=== PATIENT | female | born 1960 | race Caucasian/White ===

== ENCOUNTER 2022-05-25 09:29 | Emergency (ER) | payer OTHER ==
[~2022-05-25] VITALS: Ht 157.5 cm; Wt 90.7 kg
[2022-05-25 09:30] VITALS: BP_SYST 130
--- NOTE | 2022-05-25 09:30 | NUR ---
RECEIVED PT FROM ROBERTA MCNEILL. PT DANICAA BLS FOR N/V/D X2 DAYS. PT HAS RIGHT LOWER ABDOMINAL PAIN 5/10. PT IS AAOX4, ON N/C AT 2LPM, PT USES HOME O2. NO COUGH OR SOB NOTED. NORMAL S1S2. ABDOMEN ROUND, TENDER, BOWEL SOUNDS ACTIVE X4 QUADS. DISTAL PULSES NORMAL, SKIN WARM, NO PERIPHERAL EDEMA. SIDERAILS UP X2.
--- NOTE | 2022-05-25 09:30 | NUR ---
BROUGHT IN BY [facility] AND PLACED IN BED #3, TRIAGED. REPORT GIVEN TO JANELLE
--- NOTE | 2022-05-25 09:35 | NUR ---
DR. DAVE AT BEDSIDE TO ASSESS PT.
--- NOTE | 2022-05-25 09:45 | NUR ---
# 20 gauge angiocath placed to LAC. Use of asceptic technique. Opsite placed over site. Blood return noted. Blood for lab drawn from site. Flushed with 10 cc of normal saline. No evidence of infiltration noted. Patient tolerated well.
[2022-05-25] MEDS ORDERED: NACL 0.9% 1,000 ML IV ONE (10:00)
[2022-05-25] MEDS ORDERED: KETOROLAC TROMETHAMINE 30 MG VIAL IVP ONE (10:00)
--- NOTE | 2022-05-25 10:01 | NUR ---
TORADOL 30MG IVP GIVEN, NS 1000ML IV BOLUS INITIATED.
--- NOTE | 2022-05-25 10:08 | NUR ---
PT TAKEN TO CT SCAN AT THIS TIME.
--- NOTE | 2022-05-25 10:13 | NUR ---
PT BACK FROM CT SCAN AND PLACED BACK ON MONITOR.
[2022-05-25 10:15] LABS: BASOPHILS % (AUTO) 0.5 % (0.0-2.0); EOSINOPHILS # (AUTO) 0.1 K/uL (0.0-0.4); EOSINOPHILS % (AUTO) 1.4 % (0.0-4.0); HEMATOCRIT 39.2 % (36-48); HEMOGLOBIN 12.6 g/dL (12.0-16.0); LYMPHOCYTES # (AUTO) 1.9 K/uL (1.0-5.5); LYMPHOCYTES % (AUTO) 18.6 % (20.5-51.5); MEAN CORPUSCULAR HEMOGLOBIN 28 pg (27-31); MEAN CORPUSCULAR HGB CONC 32 % (32-36); MEAN CORPUSCULAR VOLUME 87 fL (79.0-98.0); MONOCYTES # (AUTO) 0.7 K/uL (0.0-1.0); MONOCYTES % (AUTO) 7.1 % (1.7-9.3); NEUTROPHILS # (AUTO) 7.3 K/uL (1.8-7.7); NEUTROPHILS % (AUTO) 72.4 % (40.0-70.0); PLATELET COUNT (AUTO) 242 K/uL (130-430); RED CELL DISTRIBUTION WIDTH 15.5 % (9.0-15.0); WHITE BLOOD COUNT (AUTO) 10.1 K/uL (4.8-10.8)
[2022-05-25 10:19] LABS: CALCIUM 10.6 mg/dL (8.4-11.0); CREATININE 1.93 mg/dL (0.55-1.30)
[2022-05-25 10:23] LABS: ALBUMIN 3.5 g/dL (3.4-4.8); TOTAL BILIRUBIN 0.4 mg/dL (0.0-1.0)
--- NOTE | 2022-05-25 10:47 | NUR ---
URINE OBTAINED AND TAKEN TO LAB.
[2022-05-25] MEDS ORDERED: TRAM50TA2 PO ×2 (11:13→12:01)
[2022-05-25] MEDS ORDERED: ONDA-8 TL ×2 (11:13→12:01)
--- NOTE | 2022-05-25 11:40 | NUR ---
DR. DAVE AT BEDSIDE TO DISCUSS POC.
[2022-05-25 11:49] VITALS: BP_SYST 157
--- NOTE | 2022-05-25 11:50 | NUR ---
Patient given written and verbal discharge instructions and verbalizes understanding. ER MD discussed with patient the results and treatment provided. Patient in stable condition. ID arm band removed. IV catheter removed intact and dressing applied, no active bleeding. Rx of ZOFRAN/TRAMADOL given. Patient educated on pain management and to follow up with PMD. Pain Scale 0/10. Opportunity for questions provided and answered. Medication side effect fact sheet provided.
[2022-05-25 12:18] LABS: BILIRUBIN,URINE NEGATIVE (NEGATIVE); BLOOD, URINE NEGATIVE (NEGATIVE); COLOR,URINE YELLOW (YELLOW); GLUCOSE,URINE NEGATIVE (NEGATIVE); KETONES,URINE NEGATIVE (NEGATIVE); LEUKOCYTE ESTERASE ,URINE TRACE (NEGATIVE); NITRITE, URINE NEGATIVE (NEGATIVE); PH,URINE 5.5 (5.0-8.0); PROTEIN URINE 2+ (NEGATIVE); UROBILINOGEN,URINE 0.2 (0.2-1.0)
[2022-05-25 12:29] LABS: CLARITY/URINE HAZY (CLEAR)
[2022-05-25 12:57] LABS: BACTERIA,URINE FEW /HPF (None Seen); CALCIUM OXALATE CRYSTALS,UR 30-50 /HPF (None Seen); HYALINE CASTS, URINE 0-10 /LPF (None Seen); RBC,URINE 0-3 /HPF (0-3)
== END 2022-05-25 11:50 | disposition home or self-care (01) ==
LOC: SED 09:29
DX: R10.31 Right lower quadrant pain (principal); Z88.0 Allergy status to penicillin; Z88.1 Allergy status to other antibiotic agents; Z79.899 Other long term (current) drug therapy
CPT/HCPCS: 99285; 74176; 96374; 96361; 80053; 81000; 85025; 36415; 76376; J1885; J7030